=== PATIENT | male | born 1990 | race Caucasian/White ===

== ENCOUNTER → 2016-02-21 | Outpatient (CLI) | payer BC ==
[~2016-02-21] MED LIST: ACET325T38 PO; AMOX500C5 PO; CEPH-507 PO; GUAI600T3 PO; HYDR-3702 PO; LEVO100T7 PO; METR500T17 PO; ONDA4TAB8 PO; PSYL1PAC11 PO; RANI75TA21 PO; SERT25TA69 PO; SERT50TA9 PO; TRM50T PO; levothyroxine
--- NOTE | 2016-02-21 11:49 | Diagnostic Imaging Report ---
Indication: Lower respiratory infection PA and lateral chest Heart and mediastinum are normal. Lungs are clear. There are no effusions or pneumothoraces. Impression: Negative chest Dictated by: Dictated on workstation # [id number]
== END ==
LOC: RAD 11:19
PROVIDERS: ATTEND Family Medicine
DX: J20.2 Acute bronchitis due to streptococcus (principal)
CPT/HCPCS: 71020